=== PATIENT | male | born 1955 | race Caucasian/White ===

== ENCOUNTER 2019-06-28 19:19 | Inpatient (IN) | payer BC ==
[~2019-06-28] VITALS: Ht 167.6 cm; Wt 111.8 kg
[2019-06-28 19:38] VITALS: Ht 167.6 cm; Wt 111.8 kg
--- NOTE | 2019-06-28 19:38 | NUR ---
PATIENT AAOX4 BIB [facility] WITH C/O DIZZYNESS. PT STATES HE GOT VERY DIAPHORETIC AND W/ C/O ABDOMINAL CRAMPING AFTER HE ATE A GLEN CHEESESTEAK SANDWICH EARLIER THIS AFTERNOON. PT SAYS "I HAD AT LEAST 7 EPISODES OF DIARRHEA SINCE'. PATIENT DENIES N/V DURING ASSESSMENT. PT VERY DIAPHORETIC, PROVIDED COOL WASHCLOTH FOR COMFORT MEASURES. BREATHING E/U, SKIN WARM DRY AND INTACT. PT PLACED ON ALL MONITORS FOR FURTHER OBSERVATION. REGGIE PLACED IN LOW POSITION, SIDE RAILS UP. WILL CONTINUE TO MONITOR.
[2019-06-28 20:50] LABS: PLATELET COUNT 138 x10^3mcL (130-400); RED CELL DISTRIBUTION WIDTH 13.7 % (11.5-14.5)
[2019-06-28 20:51] LABS: BASOPHIL % 0 % (0-2)
[2019-06-28 21:08] LABS: ALKALINE PHOSPHATASE 142 U/L (46-116); ALT/SGPT 79 U/L (16-63); AST/SGOT 110 U/L (15-37); BILIRUBIN TOTAL 0.69 mg/dL (0.20-1.00); CALCIUM 9.2 mg/dL (8.5-10.1); CARBON DIOXIDE 24.1 mmol/L (21-32); CHLORIDE SERUM 94 mmol/L (98-107); CREATININE SERUM 1.1 mg/dL (0.7-1.3); GFR1 > 60 mL/min; GLUCOSE SERUM 212 mg/dL (74-106); SODIUM SERUM 131 mmol/L (136-145); TOTAL PROTEIN, SERUM 6.3 g/dL (6.4-8.2)
--- NOTE | 2019-06-28 21:27 | NUR ---
MEDICATED PER MD ORDERS S
[2019-06-28 21:33] LABS: FREE T4 1.13 ng/dL (0.76-1.46); FREE THYROXINE INDEX 2.9 ug/dL (1.4-4.5); T4(THYROXINE) 7.6 ug/dL (4.7-13.3)
--- NOTE | 2019-06-28 23:03 | NUR ---
PATIENT BACK FROM CT SCAN. REQUESTED PT PROVIDE URINE SAMPLE. PT AMBULATED UNASSISTED TO BATHROOM. GAIT STEADY.
[2019-06-28 23:16] LABS: microscopic required? NO
[2019-06-28 23:26] LABS: UA SPECIFIC GRAVITY 1.015 (1.005-1.035); urine erythrocyte NEGATIVE (NEGATIVE)
[2019-06-28 23:35] LABS: AMPHETAMINE QUAL UR NONE DETECTED (See below)
--- NOTE | 2019-06-29 00:44 | NUR ---
PT MEDICATED PER ORDER, PT VERBALIZED UNDERSTANDING OF MEDICATION PRIOR TO ADMINISTRATION.
[2019-06-29] MEDS ORDERED: METFORMIN HYDR500 M1 PO (01:23)
[2019-06-29] MEDS ORDERED: LEXAPRO10 MG PO (01:24)
[2019-06-29] MEDS ORDERED: CARVEDILOL12.5 M1 PO (01:25)
[2019-06-29] MEDS ORDERED: LOSARTAN POTASS1 TA6 PO (01:25)
[2019-06-29] MEDS ORDERED: ATORVASTATIN CA40 M1 PO (01:26)
--- NOTE | 2019-06-29 02:01 | NUR ---
REPORT GIVEN TO CHANTALE LYON FOR CONTINUED CARE OF PATIENT.
--- NOTE | 2019-06-29 02:30 | NUR ---
RECEIVED PT FROM [facility]. AMBULATORY TO BED WITH STRONG AND STEADY GAIT. ABD ROUND AND SOFT WITH ACTIVE BOWEL SOUNDS, DENIES N/V AT THIS TIME, ADMITS TO DIARRHEA X7 AFTER CONSUMING A GLEN CHEESESTEAK FOR DINNER. AA/OX4, ABLE TO MAKE NEEDS KNOWN, SPEECH CLEAR AND APPROPRIATE. NSR TO TELE #16, HR 92, DENIES CP OR PRESSURE. PULSES PRESENT AND EQUAL THROUGHOUT, TRACE EDEMA TO BLE. BREATHING ON RA, EVEN AND UNLABORED, DENIES SOB OR DYSPNEA, LUNGS CTA, O2 SAT 97% FREELY VOIDS URINE. IV TO LH AND LAC IN PLACE, BOTH DRY, PATENT, INTACT, NO PAIN, REDNESS OR SWELLING WHEN FLUSHED WITH NS. LAC CONNECTED TO IVF ORDERED, INFUSING WELL. ORIENTED PT TO ROOM AND CALL LIGHT. COMFORT AND SAFETY MEASURES IMPLEMENTED. CALL LIGHT WITHIN REACH. WILL CONTINUE TO MONITOR
[2019-06-29 02:49] VITALS: BP 132/58
--- NOTE | 2019-06-29 03:05 | NUR ---
PT C/O 06/22 PAIN TO LOWER BACK, STATES DUE TO HIS SCIATIC NERVE ISSUES. MEDICASTED WITH PRN TYLENOL PER EMAR
--- NOTE | 2019-06-29 06:13 | NUR ---
NO SIGNIFICANT CHANGES TO REPORT, PT COMPLIED WITH NURSING CARE THROUGHOUT THE SHIFT WITH NO ACUTE EVENTS. NO ACUTE DISTRESS OBSERVED AT THIS TIME, PT LAYING IN BED, BREATHING EVEN AND UNLABORED, AROUSABLE TO VERBAL STIMULI. COMFORT AND SAFETY MEASURES MAINTAINED. ALL NEEDS ASSESSED AND ATTENDED TO. CALL LIGHT WITHIN REACH. WILL CONTINUE TO MONITOR AND ENDORSE CARE TO DAY SHIFT NURSE
--- NOTE | 2019-06-29 06:23 | NUR ---
SPOKE WITH LAB TO FOLLOW UP ON BLOOD DRAWS ORDERED AT 0145. PER LAB, THEY WILL BE DRAWN WITH [facility]. WAS GIVEN OK BY DR. PAINTING.
--- NOTE | 2019-06-29 07:16 | NUR ---
RECEIVED REPORT FROM SONALI KENYON. PATIENT SLEEPING COMFORTABLY IN BED. NO NEEDS IDENTIFIED. IV TO LAC IS PATENT AND INFUSING NS @ 100 ML/HR. NO REDNESS OR PAIN. TELE # [id number] NO INDICATION OF CHEST PAIN. PT ON ROOM AIR. NO DISTRESS NOTED. ALL QUESTIONS AND CONCERNS ADDRESSED.
[2019-06-29 07:46] LABS: RED CELL DISTRIBUTION WIDTH 13.5 % (11.5-14.5)
[2019-06-29 07:47] LABS: BASOPHIL % 0 % (0-2); PLATELET COUNT 125 x10^3mcL (130-400)
[2019-06-29 07:59] LABS: CALCIUM 7.9 mg/dL (8.5-10.1); CARBON DIOXIDE 23.1 mmol/L (21-32); CHLORIDE SERUM 96 mmol/L (98-107); GFR1 > 60 mL/min; GLUCOSE SERUM 220 mg/dL (74-106); HDL CHOLESTEROL 45 mg/dL (40-60); LIPASE 67 IU/L (73-393); MAGNESIUM 1.5 mg/dL (1.8-2.4); PHOSPHOROUS 3.7 mg/dL (2.5-4.9); SODIUM SERUM 131 mmol/L (136-145)
[2019-06-29 08:09] LABS: AMYLASE 14 U/L (25-115); CHOLESTEROL 105 mg/dL (<200); CHOLESTEROL/HDL RATIO 2.3; TRIGLYCERIDES 219 mg/dL (<150)
[2019-06-29 09:19] VITALS: BP 136/69
--- NOTE | 2019-06-29 10:46 | NUR ---
NOTIFIED DR DELGADO OF PATIENT LACTIC ACID INCREASING FROM 2.5 TO 3.4
[2019-06-29 12:25] VITALS: BP 137/70
[2019-06-29 13:13] VITALS: BP 137/70
--- NOTE | 2019-06-29 13:56 | NUR ---
PATIENT STABLE FOR DISCHARGE PER MD. DISCHARGE INSTRUCTIONS AND SUMMARY DISCUSSED WITH PATIENT WITH BROTHER AT BEDSIDE. PATIENT VERBALIZED UNDERSTANDING AND AGREES TO FOLLOW UP WITH PRIMARY DOCTOR WITHIN THREE DAYS PER DOCTOR RECOMMENDATION. TELE MONITOR REMOVED AND MONITOR NOTIFIED. ID BANDS CUT. IVS REMOVED AND IV POLE CLEARED. PT ESCORTED TO LOBBY.
== END 2019-06-29 13:57 | disposition home or self-care (01) | DRG 392 ==
LOC: ED 19:19 → DU 06-29 00:53
PROVIDERS: Emergency Medicine; ADMIT Internal Medicine
DX: K52.9 Noninfective gastroenteritis and colitis, unspecified (principal); E87.1 Hypo-osmolality and hyponatremia; E44.0 Moderate protein-calorie malnutrition; D68.59 Other primary thrombophilia; I10 Essential (primary) hypertension; E11.9 Type 2 diabetes mellitus without complications; E66.9 Obesity, unspecified; F41.1 Generalized anxiety disorder; Z79.84 Long term (current) use of oral hypoglycemic drugs; Z88.0 Allergy status to penicillin; D64.9 Anemia, unspecified; E87.8 Other disorders of electrolyte and fluid balance, not elsewhere classified; E87.6 Hypokalemia; E11.65 Type 2 diabetes mellitus with hyperglycemia; M54.32 Sciatica, left side
CPT/HCPCS: 82962; 83880; 84439; 85378; G0378; J1885; J7030; Q0092; Q9967